=== PATIENT | female | born 1945 | race Caucasian/White ===

== ENCOUNTER 2024-02-05 09:21 | Observation (INO) ==
--- NOTE | 2024-02-05 09:34 | DR.NAUSEAF ---
HPI Time Seen Time Seen by Provider: 02/05/24 09:34 Primary Care Physician Primary Care Physician: Dr. Sesay Complaints Chief Complaint Doctors Comments: 78-year-old female presents for evaluation. Started feeling a bit off balance yesterday, then developed nausea with vomiting. Has had several episodes of vomiting throughout the night. Having generalized weakness. Denies fevers or chills. No URI symptoms, denies cough. Moved her bowels last p.m., was normal, no diarrhea. Denies abdominal pain. Still urinating, no burning with urination. Not around any known ill individuals. Chief Complaint:: Pt states that last night she had a sudden onset of nausea and vomiting that has continued through the night and into this morning. Pt c/o generalized weakness. Denies pain, diarrhea,chills or fever. COVID-19 Coronavirus risk:travel/contact w/high risk person: No Has patient experienced Coronavirus symptoms: No Reviewed Nurses Notes Reviewed: Yes Source History Provided: Patient Mode of Arrival Mode of Arrival: Wheelchair Timing Onset of Chief Complaint: 02/04/24 PMH PMH Past Medical History: Yes Past Medical History: Depression, Dyslipidemia, GERD and Hypothyroidism Past Medical History Comment: chronic back pain Past Surgical History: Yes Surgical History: Past Surgical History Comment: bilateral cataract surgery Family History History of Family Medical Conditions: Yes Family Medical History Comment: alcohol abuse Social History Does patient currently use any type of tobacco product: No Have you used tobacco products in the last 12 months: No Type of Tobacco Use: None Does any household member use tobacco: No Alcohol Use: None Do you use any recreational Drugs:: No Lives With: Family Lives Where: Home Travel Risk Coronavirus risk:travel/contact w/high risk person: No Has patient experienced Coronavirus symptoms: No Infectious screening In the last 2 months have you had wt loss of >10#?: NO Have you had fever, night sweats or hemotysis?: No Have you traveled outside the country in the last 6 months?: No Isolation: Standard ROS Review of Systems Constitutional: Weakness Eyes: No Symptoms Reported ENTM: No Symptoms Reported Respiratoy: No Symptoms Reported Cardiovascular: No Symptoms Reported Gastrointestinal/Abdominal: Nausea and Vomiting Genitourinary: No Symptoms Reported Neurological: Weakness Musculoskeletal: No Symptoms Reported Integumentary: No Symptoms Reported Hematologic/Lymphatic: No Symptoms Reported All Other Systems: Reviewed and Negative PE Vital Signs Vitals: Vital Signs Temperature 97.8 F Pulse Rate [Left Radial] 85 Pulse Rate 70 Pulse Rate 58 Pulse Rate 56 Pulse Rate 63 Pulse Rate 54 Pulse Rate 62 Pulse Rate 61 Pulse Rate 63 Pulse Rate 69 Pulse Rate 64 Pulse Rate 63 Pulse Rate 72 Pulse Rate 81 Respiratory Rate 20 Blood Pressure [Left Arm] 138/61 Blood Pressure 109/55 Blood Pressure 126/58 Blood Pressure 131/60 Blood Pressure 130/60 Blood Pressure 132/55 Blood Pressure 138/61 O2 Sat by Pulse Oximetry 97 O2 Sat by Pulse Oximetry 97 O2 Sat by Pulse Oximetry 97 O2 Sat by Pulse Oximetry 97 O2 Sat by Pulse Oximetry 97 O2 Sat by Pulse Oximetry 97 O2 Sat by Pulse Oximetry 97 O2 Sat by Pulse Oximetry 97 O2 Sat by Pulse Oximetry 98 O2 Sat by Pulse Oximetry 99 O2 Sat by Pulse Oximetry 96 O2 Sat by Pulse Oximetry 96 O2 Sat by Pulse Oximetry 96 O2 Sat by Pulse Oximetry 96 General General Appearance: Alert and In No Apparent Distress Eyes Eye exam: PERRL and EOMI ENT ENT Exam: Mucous Membranes Moist Neck Neck Exam: Normal Inspection Respiratory Respiratory Exam: Normal Lung Sounds Bilat; negative Accessory Muscle Use or Respiratory Distress Cardiovascular Cardiovascular Exam: Regular Rate, Normal Rhythm and Normal Heart Sounds Abdominal Exam Abdominal Exam: Normal Bowel Sounds and Soft; negative Tenderness, Guarding or Rebound Extremities Extremities Exam: Normal Inspection Neurologic Neurological Exam: Alert, Oriented X3 and CN II-XII Intact; negative Motor Sensory Deficit Skin Skin Exam: Warm and Dry COURSE Treatment Treatment: 78-year-old female with nausea vomiting since last p.m. Appears generally weak. No abdominal pain. Workup initiated. Patient given IV fluids, IV Zofran/Protonix. 1126 - feeling slightly better. No active vomiting here. Labs overall acceptable. U/A off a bit - + aissatou est, bacteria. Will treat with IV Rocephin here, additional zofran given, additional IV fluids. 1205 - still feeling nauseous, weak, worse with standing. No orthostatic changes. Discussed with her attending, Dr Sesay, will admit for observation. ROR Labs Reviewed Laboratory Results Reviewed?: Yes 02/05/24 09:35 02/05/24 09:35 Laboratory: WBC 6.2 X10^3/uL (3.6-10.0) 02/05/24 09:35 RBC 3.45 X10^6/uL (3.5-5.4) L 02/05/24 09:35 Hgb 10.3 g/dL (12.0-16.0) L 02/05/24 09:35 Hct 30.8 % (36.0-47.0) L 02/05/24 09:35 MCV 89.3 fL (80.0-100.0) 02/05/24 09:35 MCH 29.8 pg (27.0-34.0) 02/05/24 09:35 MCHC 33.4 g/dL (33.0-35.0) 02/05/24 09:35 RDW 13.6 % (11.6-16.5) 02/05/24 09:35 Plt Count 243 X10^3/uL (150.0-450.0) 02/05/24 09:35 MPV 8.9 fL (7.4-11.0) 02/05/24 09:35 Neut % (Auto) 81.7 % (42.0-75.0) H 02/05/24 09:35 Lymph % (Auto) 14.1 % (21.0-51.0) L 02/05/24 09:35 [place] % (Auto) 3.5 % (0.0-13.0) 02/05/24 09:35 Eos % (Auto) 0.1 % (0.9-2.9) L 02/05/24 09:35 Baso % (Auto) 0.6 % (0.2-1.0) 02/05/24 09:35 Neut # (Auto) 5.1 x10^3/uL (2.2-4.8) H 02/05/24 09:35 Lymph # (Auto) 0.9 X10^3/uL (1.3-2.9) L 02/05/24 09:35 [place] # (Auto) 0.2 x10^3/uL (0.3-0.8) L 02/05/24 09:35 Eos # (Auto) 0.0 x10^3/uL (0.0-0.2) 02/05/24 09:35 Baso # (Auto) 0.0 X10^3/uL (0.0-0.1) 02/05/24 09:35 Absolute Nucleated RBC 0.1 /100WBC 02/05/24 09:35 Sodium 139 mmol/L (136-145) 02/05/24 09:35 Corrected Sodium 140 mmol/L (136-145) 02/05/24 09:35 Potassium 3.9 mmol/L (3.5-5.1) 02/05/24 09:35 Chloride 103 mmol/L (98-107) 02/05/24 09:35 Carbon Dioxide 25.7 mmol/L (21-32) 02/05/24 09:35 BUN 13 mg/dL (7-18) 02/05/24 09:35 Creatinine 0.90 mg/dL (0.55-1.02) 02/05/24 09:35 Est GFR (MDRD) Af Amer > 60 (>60) 02/05/24 09:35 Est GFR (MDRD) Non-Af > 60 (>60) 02/05/24 09:35 Glucose 128 mg/dL (65-99) H 02/05/24 09:35 Calcium 8.5 mg/dL (8.5-10.1) 02/05/24 09:35 Corrected Calcium 9.2 mg/dL (8.5-10.1) 02/05/24 09:35 Total Bilirubin 0.40 mg/dL (0.2-1.0) 02/05/24 09:35 AST 16 Units/L (15-37) 02/05/24 09:35 ALT 12 Units/L (12-78) 02/05/24 09:35 Alkaline Phosphatase 107 Units/L (46-116) 02/05/24 09:35 Troponin I High Sens < 4.0 ng/L (4.0-60.0) L 02/05/24 09:35 Total Protein 7.0 g/dL (6.4-8.2) 02/05/24 09:35 Albumin 3.1 g/dL (3.4-5.0) L 02/05/24 09:35 Globulin 3.9 g/dL (2.5-4.5) 02/05/24 09:35 Albumin/Globulin Ratio 0.8 Ratio (1.1-2.1) L 02/05/24 09:35 Lipase 25 Units/L (16-77) 02/05/24 09:35 Specimen Type Clean catch urine 02/05/24 10:53 Urine Color Yellow (YELLOW) 02/05/24 10:53 Urine Appearance Clear (CLEAR) 02/05/24 10:53 Urine pH 7.0 (5.0 - 8.0) 02/05/24 10:53 Ur Specific [place] 1.015 (1.000-1.030) 02/05/24 10:53 Urine Protein Negative (NEGATIVE) 02/05/24 10:53 Urine Glucose (UA) Negative (NEGATIVE) 02/05/24 10:53 Urine Ketones Negative (NEGATIVE) 02/05/24 10:53 Urine Blood 1+ (NEGATIVE) 02/05/24 10:53 Urine Nitrite Negative (NEGATIVE) 02/05/24 10:53 Urine Bilirubin Negative (NEGATIVE) 02/05/24 10:53 Urine Urobilinogen Normal (NORMAL) 02/05/24 10:53 Ur Leukocyte Esterase 1+ (NEGATIVE) 02/05/24 10:53 Urine RBC 3-5 /HPF (0-3) A 02/05/24 10:53 Urine WBC 5-10 /HPF (0-5) A 02/05/24 10:53 Ur Squamous Epith Cells Few /HPF (NEGATIVE) 02/05/24 10:53 Urine Bacteria 2+ /HPF (NEGATIVE) 02/05/24 10:53 Ur Culture Indicated? Yes/culture set up 02/05/24 10:53 Labs overall acceptable. Urine consistent with UTI. Opioid Opioid Risk Tool Age (Jignesh box if 16-45): No History of Preadolescent Sexual Abuse: No Total: 0 Total Score Risk Category: Low Risk Copyright: Dante STARR predicting aberrant behaviors Discharge Plan Diagnosis Discharge Problem: Vomiting, Acute UTI Discharge Plan Patient Disposition: 09 ADMITTED INPATIENT Condition: Stable Orders to Discharge Patient Discharge Orders: Transfer (Routine); Ordered 02/05/24 Ordered By: Brown Colbert
[2024-02-05] MEDS: ZOFRAN INJ 4 MG VIAL IVP ONE ×2 (09:43→11:40)
[2024-02-05] MEDS: PROTONIX INJ 40 MG VIAL IVP ONE (09:43)
[2024-02-05] MEDS: NS 500 ML IV 500 ML IV ONE ×2 (09:43→14:09)
[2024-02-05 09:55] LABS: BASOPHILS % (AUTO) 0.6 % (0.2-1.0); EOSINOPHILS % (AUTO) 0.1 % (0.9-2.9); HEMATOCRIT 30.8 % (36.0-47.0); HEMOGLOBIN 10.3 g/dL (12.0-16.0); LYMPHOCYTES # (AUTO) 0.9 X10^3/uL (1.3-2.9); LYMPHOCYTES % (AUTO) 14.1 % (21.0-51.0); MEAN CORPUSCULAR HEMOGLOBIN 29.8 pg (27.0-34.0); MEAN CORPUSCULAR HGB CONC 33.4 g/dL (33.0-35.0); MEAN CORPUSCULAR VOLUME 89.3 fL (80.0-100.0); MEAN PLATELET VOLUME 8.9 fL (7.4-11.0); MONOCYTES # (AUTO) 0.2 x10^3/uL (0.3-0.8); MONOCYTES % (AUTO) 3.5 % (0.0-13.0); NEUTROPHILS # (AUTO) 5.1 x10^3/uL (2.2-4.8); NEUTROPHILS % (AUTO) 81.7 % (42.0-75.0); PLATELET COUNT 243 X10^3/uL (150.0-450.0); RED BLOOD COUNT 3.45 X10^6/uL (3.5-5.4); RED CELL DISTRIBUTION WIDTH 13.6 % (11.6-16.5); WHITE BLOOD COUNT 6.2 X10^3/uL (3.6-10.0)
[2024-02-05 10:10] LABS: ALANINE AMINOTRANSFERASE 12 Units/L (12-78); ALBUMIN 3.1 g/dL (3.4-5.0); ALKALINE PHOSPHATASE 107 Units/L (46-116); ASPARTATE AMINO TRANSFERASE 16 Units/L (15-37); BLOOD UREA NITROGEN 13 mg/dL (7-18); CALCIUM 8.5 mg/dL (8.5-10.1); CARBON DIOXIDE 25.7 mmol/L (21-32); CHLORIDE 103 mmol/L (98-107); COR CA(FOR HYPOALB) 9.2 mg/dL (8.5-10.1); COR NA(FOR HYPERGLY) 140 mmol/L (136-145); GLUCOSE 128 mg/dL (65-99); LIPASE 25 Units/L (16-77); POTASSIUM 3.9 mmol/L (3.5-5.1); SODIUM 139 mmol/L (136-145); eGFR NON BLACK RACES > 60 (>60)
[2024-02-05] MEDS: NS 250 ML IV 250 ML IV ONE ×2 (10:52→14:10)
[2024-02-05 11:15] LABS: BILIRUBIN,URINE NEGATIVE (NEGATIVE); BLOOD/HEMOGLOBIN,URINE 1+ (NEGATIVE); GLUCOSE, URINE NEGATIVE (NEGATIVE); KETONES,URINE NEGATIVE (NEGATIVE); LEUKOCYTE ESTERASE ,URINE 1+ (NEGATIVE); NITRITES,URINE NEGATIVE (NEGATIVE); PROTEIN,URINE NEGATIVE (NEGATIVE); UROBILINOGEN,URINE NORMAL (NORMAL)
[2024-02-05 11:19] LABS: APPEARANCE,URINE CLEAR (CLEAR); COLOR,URINE YELLOW (YELLOW)
[2024-02-05 11:20] LABS: BACTERIA,URINE 2+ /HPF (NEGATIVE); SQUAMOUS EPITHELIAL CELL,UR FEW /HPF (NEGATIVE)
[2024-02-05] MEDS: ROCEPHIN VIAL 1 GRAM IVP ONE (11:40)
[2024-02-05] MEDS: CARAFATE PO ONE (12:07)
[2024-02-05] MEDS ORDERED: CONSULT PHARMACY - POTASSIUM & MAGNESIUM XX SCH (13:49)
[2024-02-05] MEDS: ROCEPHIN VIAL 1 GRAM 1 G in NS 100 ML IV 100 ML IV SCH (14:08)
[2024-02-05] MEDS: ZOFRAN INJ 4 MG VIAL ONE ×2 (14:09→14:11)
[2024-02-05] MEDS: PROTONIX INJ 40 MG VIAL ONE (14:09)
[2024-02-05] MEDS: ROCEPHIN VIAL 1 GRAM ONE (14:10)
[2024-02-05] MEDS: CARAFATE ONE (14:11)
[2024-02-05] MEDS: LR 1,000 ML IV 1,000 ML IV SCH (14:38)
[2024-02-05] MEDS: ZOFRAN INJ 4 MG VIAL IVP PRN (14:48)
[2024-02-05] MEDS: ZOCOR TAB 40 MG PO SCH (20:17)
[2024-02-06 05:34] LABS: BASOPHILS % (AUTO) 0.3 % (0.2-1.0); EOSINOPHILS % (AUTO) 0.5 % (0.9-2.9); HEMOGLOBIN 9.1 g/dL (12.0-16.0); LYMPHOCYTES # (AUTO) 1.1 X10^3/uL (1.3-2.9); LYMPHOCYTES % (AUTO) 15.3 % (21.0-51.0); MEAN CORPUSCULAR HEMOGLOBIN 30.2 pg (27.0-34.0); MEAN CORPUSCULAR HGB CONC 33.6 g/dL (33.0-35.0); MEAN CORPUSCULAR VOLUME 89.7 fL (80.0-100.0); MEAN PLATELET VOLUME 9.1 fL (7.4-11.0); MONOCYTES # (AUTO) 0.5 x10^3/uL (0.3-0.8); MONOCYTES % (AUTO) 7.6 % (0.0-13.0); NEUTROPHILS # (AUTO) 5.3 x10^3/uL (2.2-4.8); NEUTROPHILS % (AUTO) 76.3 % (42.0-75.0); PLATELET COUNT 198 X10^3/uL (150.0-450.0); RED BLOOD COUNT 3.01 X10^6/uL (3.5-5.4); RED CELL DISTRIBUTION WIDTH 13.6 % (11.6-16.5)
[2024-02-06 05:45] LABS: ALANINE AMINOTRANSFERASE 8 Units/L (12-78); ALBUMIN 2.3 g/dL (3.4-5.0); ALKALINE PHOSPHATASE 82 Units/L (46-116); ASPARTATE AMINO TRANSFERASE 13 Units/L (15-37); BLOOD UREA NITROGEN 15 mg/dL (7-18); CALCIUM 7.9 mg/dL (8.5-10.1); CARBON DIOXIDE 25.5 mmol/L (21-32); CHLORIDE 106 mmol/L (98-107); COR CA(FOR HYPOALB) 9.3 mg/dL (8.5-10.1); CREATININE 0.92 mg/dL (0.55-1.02); GLUCOSE 87 mg/dL (65-99); POTASSIUM 3.6 mmol/L (3.5-5.1); SODIUM 140 mmol/L (136-145); TOTAL PROTEIN 5.6 g/dL (6.4-8.2); eGFR NON BLACK RACES > 60 (>60)
[2024-02-06 05:58] LABS: PLATELET MORPHOLOGY COMMENT NORMAL (NORMAL)
[2024-02-06] MEDS ORDERED: CONSULT PHARMACY - POTASSIUM & MAGNESIUM XX SCH (07:00)
[2024-02-06] MEDS: ESTRACE PO SCH (09:24)
[2024-02-06] MEDS: K-DUR TAB 20 MEQ PO SCH (09:25)
[2024-02-06] MEDS: PROTONIX TAB 40 MG PO SCH (09:25)
[2024-02-06] MEDS: SYNTHROID 25 mcg TAB PO SCH (09:25)
[2024-02-06] MEDS: FLONASE NASAL SPRAY ENOSTRIL SCH (09:25)
[2024-02-06] MEDS: PROVERA PO SCH (09:25)
[2024-02-06] MEDS: LEXAPRO PO SCH (09:25)
[2024-02-06] MEDS: LR 1,000 ML IV 1,000 ML IV SCH (09:26)
[2024-02-06] MEDS: LEXAPRO ONE (09:26)
[2024-02-06] MEDS ORDERED: ANTIVERT TAB 25 MG ONE (13:40)
[2024-02-06] MEDS: ANTIVERT TAB 25 MG PO PRN (13:48)
--- NOTE | 2024-02-06 17:18 | DR.H&P ---
H&P History & Physical for Day of: H&P Date: 02/05/24 Chief Complaint Chief Complaint: Nausea and vomiting Allergies Allergies Allergy/AdvReac Type Severity Reaction Status Date / Time No Known Allergies Allergy Verified 02/05/24 09:32 History of Present Illness History of Present Illness: This is a pleasant 78-year-old white female well- known to me. She developed an acute onset of nausea and vomiting the day before. She could not keep anything down and went to the [facility] emergency department to be seen by a physician. In the emergency department, she underwent a workup, which revealed that she looked very ill, and every time she stood up, she would become sicker. She was very unsteady on her feet, and because of that, we elected to go ahead and admit her overnight for IV hydration. Her labs do indicate that she is somewhat dehydrated and does have an elevated neutrophil count indicative of a bacterial infection. We also found that she has a urinary tract infection and we have started her on IV Rocephin. Past Medical History Past Medical History: Depression, Dyslipidemia, GERD and Hypothyroidism Past Surgical History Surgical History: Family History Family Medical History: Hypertension Social History Does patient currently use any type of tobacco product: No Have you used tobacco products in the last 12 months: No Type of Tobacco Use: None Does any household member use tobacco: No Alcohol Use: None Drug Use: None Medications Home Medications: Home Medications Medication Instructions Recorded Confirmed Type escitalopram oxalate 20 mg tablet 20 mg PO QDAY 05/09/23 02/05/24 History estradiol 0.5 mg tablet 0.5 mg PO QDAY 05/09/23 02/05/24 History levothyroxine 25 mcg tablet 25 mcg PO QDAY 05/09/23 02/05/24 History medroxyprogesterone 5 mg tablet 5 mg PO QDAY 05/09/23 02/05/24 History pantoprazole 40 mg tablet,delayed 40 mg PO QDAY 05/09/23 02/05/24 History release simvastatin 40 mg tablet 40 mg PO QPM 05/09/23 02/05/24 History doxycycline hyclate 100 mg capsule 100 mg PO BID 02/05/24 02/05/24 History Labs 02/06/24 05:12 02/06/24 05:12 Labs: 02/05/24 10:53 Urine,Clean Catch Urine Culture - Preliminary Laboratory WBC 7.0 X10^3/uL (3.6-10.0) 02/06/24 05:12 RBC 3.01 X10^6/uL (3.5-5.4) L 02/06/24 05:12 Hgb 9.1 g/dL (12.0-16.0) L 02/06/24 05:12 Hct 27.0 % (36.0-47.0) L 02/06/24 05:12 MCV 89.7 fL (80.0-100.0) 02/06/24 05:12 MCH 30.2 pg (27.0-34.0) 02/06/24 05:12 MCHC 33.6 g/dL (33.0-35.0) 02/06/24 05:12 RDW 13.6 % (11.6-16.5) 02/06/24 05:12 Plt Count 198 X10^3/uL (150.0-450.0) 02/06/24 05:12 Plt Count Comment Adequate (ADEQUATE) 02/06/24 05:12 MPV 9.1 fL (7.4-11.0) 02/06/24 05:12 Neut % (Auto) 76.3 % (42.0-75.0) H 02/06/24 05:12 Lymph % (Auto) 15.3 % (21.0-51.0) L 02/06/24 05:12 [place] % (Auto) 7.6 % (0.0-13.0) 02/06/24 05:12 Eos % (Auto) 0.5 % (0.9-2.9) L 02/06/24 05:12 Baso % (Auto) 0.3 % (0.2-1.0) 02/06/24 05:12 Neut # (Auto) 5.3 x10^3/uL (2.2-4.8) H 02/06/24 05:12 Lymph # (Auto) 1.1 X10^3/uL (1.3-2.9) L 02/06/24 05:12 [place] # (Auto) 0.5 x10^3/uL (0.3-0.8) 02/06/24 05:12 Eos # (Auto) 0.0 x10^3/uL (0.0-0.2) 02/06/24 05:12 Baso # (Auto) 0.0 X10^3/uL (0.0-0.1) 02/06/24 05:12 Absolute Nucleated RBC 0.0 /100WBC 02/06/24 05:12 Total Counted 100 02/06/24 05:12 Neutrophils % (Manual) 82 % (39-76) H 02/06/24 05:12 Lymphocytes % (Manual) 16 % (13-43) 02/06/24 05:12 Monocytes % (Manual) 2 % (4-9) L 02/06/24 05:12 Plt Morphology Comment Normal (NORMAL) 02/06/24 05:12 RBC Morphology Normal (NORMAL) 02/06/24 05:12 Sodium 140 mmol/L (136-145) 02/06/24 05:12 Corrected Sodium TNP 02/06/24 05:12 Potassium 3.6 mmol/L (3.5-5.1) 02/06/24 05:12 Chloride 106 mmol/L (98-107) 02/06/24 05:12 Carbon Dioxide 25.5 mmol/L (21-32) 02/06/24 05:12 BUN 15 mg/dL (7-18) 02/06/24 05:12 Creatinine 0.92 mg/dL (0.55-1.02) 02/06/24 05:12 Est GFR (MDRD) Af Amer > 60 (>60) 02/06/24 05:12 Est GFR (MDRD) Non-Af > 60 (>60) 02/06/24 05:12 Glucose 87 mg/dL (65-99) 02/06/24 05:12 Calcium 7.9 mg/dL (8.5-10.1) L 02/06/24 05:12 Corrected Calcium 9.3 mg/dL (8.5-10.1) 02/06/24 05:12 Magnesium 2.0 mg/dL (2.0-2.9) 02/06/24 05:12 Total Bilirubin 0.30 mg/dL (0.2-1.0) 02/06/24 05:12 AST 13 Units/L (15-37) L 02/06/24 05:12 ALT 8 Units/L (12-78) L 02/06/24 05:12 Alkaline Phosphatase 82 Units/L (46-116) 02/06/24 05:12 Troponin I High Sens < 4.0 ng/L (4.0-60.0) L 02/05/24 09:35 Total Protein 5.6 g/dL (6.4-8.2) L 02/06/24 05:12 Albumin 2.3 g/dL (3.4-5.0) L 02/06/24 05:12 Globulin 3.3 g/dL (2.5-4.5) 02/06/24 05:12 Albumin/Globulin Ratio 0.7 Ratio (1.1-2.1) L 02/06/24 05:12 Lipase 25 Units/L (16-77) 02/05/24 09:35 Specimen Type Clean catch urine 02/05/24 10:53 Urine Color Yellow (YELLOW) 02/05/24 10:53 Urine Appearance Clear (CLEAR) 02/05/24 10:53 Urine pH 7.0 (5.0 - 8.0) 02/05/24 10:53 Ur Specific [place] 1.015 (1.000-1.030) 02/05/24 10:53 Urine Protein Negative (NEGATIVE) 02/05/24 10:53 Urine Glucose (UA) Negative (NEGATIVE) 02/05/24 10:53 Urine Ketones Negative (NEGATIVE) 02/05/24 10:53 Urine Blood 1+ (NEGATIVE) 02/05/24 10:53 Urine Nitrite Negative (NEGATIVE) 02/05/24 10:53 Urine Bilirubin Negative (NEGATIVE) 02/05/24 10:53 Urine Urobilinogen Normal (NORMAL) 02/05/24 10:53 Ur Leukocyte Esterase 1+ (NEGATIVE) 02/05/24 10:53 Urine RBC 3-5 /HPF (0-3) A 02/05/24 10:53 Urine WBC 5-10 /HPF (0-5) A 02/05/24 10:53 Ur Squamous Epith Cells Few /HPF (NEGATIVE) 02/05/24 10:53 Urine Bacteria 2+ /HPF (NEGATIVE) 02/05/24 10:53 Ur Culture Indicated? Yes/culture set up 02/05/24 10:53 Review of Systems Constitutional: Sweats, Weakness and Malaise Eyes: No Symptoms Reported ENT: No Symptoms Reported Respiratory: No Symptoms Reported Cardiovascular: No Symptoms Reported Gastrointestinal: Nausea and Vomiting; denies Abdominal Pain, Diarrhea, Melena or Hematochezia Genitourinary: No Symptoms Reported Musculoskeletal: No Symptoms Reported Skin: No Symptoms Reported Neurological: No Symptoms Reported Physical Exam Vital Signs: Vital Signs Temperature 98.3 F Pulse Rate [Left Radial] 74 Respiratory Rate 18 Blood Pressure [Left Arm] 113/56 O2 Sat by Pulse Oximetry 96 Oriented: Normal, Time, Person and Place Eyes: Normal Ear: Normal Throat: Normal Respiratory: Clear Throughout Cardiovascular: Normal Auscultation: Bowel Sounds: Normal Palpation: Normal Tenderness: Normal Skin: Normal Musculoskeletal: Normal Psychiatric: Normal Mood Description: Calm Affect: Anxious, Depressed, Flat and Quiet Speech Pattern: Clear and Appropriate Assessment/Plan (1) Vomiting: Status: Acute Plan: IV hydration and IV Zofran for nausea/vomiting. Repeat CBC and CMP in the a.m. (2) Acute UTI: Status: Acute Plan: IV Rocephin. (3) Chronic low back pain: Status: Acute Plan: Pain control if needed. (4) Hypothyroidism: Qualifiers: Hypothyroidism type: unspecified Qualified Code(s): E03.9 - Hypothyroidism, unspecified Status: Acute Plan: Resume levothyroxine 25 mcg daily. We will plan on doing a TSH while she is here in the hospital as well. Review H&P Reviewed: Yes Patient was examined?: Yes
--- NOTE | 2024-02-06 17:20 | PCM.PROG ---
Progress Note Progress Note for Day of Date of Exam: 02/06/24 Subjective Subjective: The patient reports she feels a little bit better this morning. When she stands up she still gets lightheaded and feels bad. She is not currently ready to go home yet so we will plan on giving her another day of IV fluid. I will increase her IV fluid from 75 cc an hour to 125 cc an hour of lactated Ringer's. Will continue her on IV Rocephin for her UTI. I will follow up on her urine culture and sensitivity report. Once it is back and available for review we will adjust antibiotic treatment accordingly if needed. I will put in for consultation physical therapy today so we can start to help strengthening the patient's lower extremities and to keep her from becoming bedbound. Past Medical Family Social History Allergies: Allergies No Known Allergies Allergy (Verified 02/05/24 09:32) Review of Systems ROS: No change since H&P Vital Signs and I&O's Vital Signs: Vital Signs Temperature 98.3 F Pulse Rate [Left Radial] 74 Respiratory Rate 18 Blood Pressure [Left Arm] 113/56 O2 Sat by Pulse Oximetry 96 Intake and Output: Intake & Output 02/04/24 02/05/24 02/06/24 02/07/24 11:59 11:59 11:59 11:59 Intake Total 1263 / 1263 Balance 1263 / 1263 Physical Exam Oriented: Normal, Time, Person and Place Eyes: Normal Ear: Normal Throat: Normal Cardiovascular: Normal Auscultation: Bowel Sounds: Normal Tenderness: Normal Skin: Normal Musculoskeletal: Normal Psychiatric: Normal Mood Description: Calm Affect: Anxious, Depressed, Flat and Quiet Speech Pattern: Clear and Appropriate Laboratory and Diagnostics 02/06/24 05:12 02/06/24 05:12 Labs: 02/05/24 10:53 Urine,Clean Catch Urine Culture - Preliminary Laboratory WBC 7.0 X10^3/uL (3.6-10.0) 02/06/24 05:12 RBC 3.01 X10^6/uL (3.5-5.4) L 02/06/24 05:12 Hgb 9.1 g/dL (12.0-16.0) L 02/06/24 05:12 Hct 27.0 % (36.0-47.0) L 02/06/24 05:12 MCV 89.7 fL (80.0-100.0) 02/06/24 05:12 MCH 30.2 pg (27.0-34.0) 02/06/24 05:12 MCHC 33.6 g/dL (33.0-35.0) 02/06/24 05:12 RDW 13.6 % (11.6-16.5) 02/06/24 05:12 Plt Count 198 X10^3/uL (150.0-450.0) 02/06/24 05:12 Plt Count Comment Adequate (ADEQUATE) 02/06/24 05:12 MPV 9.1 fL (7.4-11.0) 02/06/24 05:12 Neut % (Auto) 76.3 % (42.0-75.0) H 02/06/24 05:12 Lymph % (Auto) 15.3 % (21.0-51.0) L 02/06/24 05:12 [place] % (Auto) 7.6 % (0.0-13.0) 02/06/24 05:12 Eos % (Auto) 0.5 % (0.9-2.9) L 02/06/24 05:12 Baso % (Auto) 0.3 % (0.2-1.0) 02/06/24 05:12 Neut # (Auto) 5.3 x10^3/uL (2.2-4.8) H 02/06/24 05:12 Lymph # (Auto) 1.1 X10^3/uL (1.3-2.9) L 02/06/24 05:12 [place] # (Auto) 0.5 x10^3/uL (0.3-0.8) 02/06/24 05:12 Eos # (Auto) 0.0 x10^3/uL (0.0-0.2) 02/06/24 05:12 Baso # (Auto) 0.0 X10^3/uL (0.0-0.1) 02/06/24 05:12 Absolute Nucleated RBC 0.0 /100WBC 02/06/24 05:12 Total Counted 100 02/06/24 05:12 Neutrophils % (Manual) 82 % (39-76) H 02/06/24 05:12 Lymphocytes % (Manual) 16 % (13-43) 02/06/24 05:12 Monocytes % (Manual) 2 % (4-9) L 02/06/24 05:12 Plt Morphology Comment Normal (NORMAL) 02/06/24 05:12 RBC Morphology Normal (NORMAL) 02/06/24 05:12 Sodium 140 mmol/L (136-145) 02/06/24 05:12 Corrected Sodium TNP 02/06/24 05:12 Potassium 3.6 mmol/L (3.5-5.1) 02/06/24 05:12 Chloride 106 mmol/L (98-107) 02/06/24 05:12 Carbon Dioxide 25.5 mmol/L (21-32) 02/06/24 05:12 BUN 15 mg/dL (7-18) 02/06/24 05:12 Creatinine 0.92 mg/dL (0.55-1.02) 02/06/24 05:12 Est GFR (MDRD) Af Amer > 60 (>60) 02/06/24 05:12 Est GFR (MDRD) Non-Af > 60 (>60) 02/06/24 05:12 Glucose 87 mg/dL (65-99) 02/06/24 05:12 Calcium 7.9 mg/dL (8.5-10.1) L 02/06/24 05:12 Corrected Calcium 9.3 mg/dL (8.5-10.1) 02/06/24 05:12 Magnesium 2.0 mg/dL (2.0-2.9) 02/06/24 05:12 Total Bilirubin 0.30 mg/dL (0.2-1.0) 02/06/24 05:12 AST 13 Units/L (15-37) L 02/06/24 05:12 ALT 8 Units/L (12-78) L 02/06/24 05:12 Alkaline Phosphatase 82 Units/L (46-116) 02/06/24 05:12 Troponin I High Sens < 4.0 ng/L (4.0-60.0) L 02/05/24 09:35 Total Protein 5.6 g/dL (6.4-8.2) L 02/06/24 05:12 Albumin 2.3 g/dL (3.4-5.0) L 02/06/24 05:12 Globulin 3.3 g/dL (2.5-4.5) 02/06/24 05:12 Albumin/Globulin Ratio 0.7 Ratio (1.1-2.1) L 02/06/24 05:12 Lipase 25 Units/L (16-77) 02/05/24 09:35 Specimen Type Clean catch urine 02/05/24 10:53 Urine Color Yellow (YELLOW) 02/05/24 10:53 Urine Appearance Clear (CLEAR) 02/05/24 10:53 Urine pH 7.0 (5.0 - 8.0) 02/05/24 10:53 Ur Specific [place] 1.015 (1.000-1.030) 02/05/24 10:53 Urine Protein Negative (NEGATIVE) 02/05/24 10:53 Urine Glucose (UA) Negative (NEGATIVE) 02/05/24 10:53 Urine Ketones Negative (NEGATIVE) 02/05/24 10:53 Urine Blood 1+ (NEGATIVE) 02/05/24 10:53 Urine Nitrite Negative (NEGATIVE) 02/05/24 10:53 Urine Bilirubin Negative (NEGATIVE) 02/05/24 10:53 Urine Urobilinogen Normal (NORMAL) 02/05/24 10:53 Ur Leukocyte Esterase 1+ (NEGATIVE) 02/05/24 10:53 Urine RBC 3-5 /HPF (0-3) A 02/05/24 10:53 Urine WBC 5-10 /HPF (0-5) A 02/05/24 10:53 Ur Squamous Epith Cells Few /HPF (NEGATIVE) 02/05/24 10:53 Urine Bacteria 2+ /HPF (NEGATIVE) 02/05/24 10:53 Ur Culture Indicated? Yes/culture set up 02/05/24 10:53 Plan (1) Vomiting: Status: Acute Plan: IV hydration and IV Zofran for nausea/vomiting. Repeat CBC and CMP in the a.m. (2) Acute UTI: Status: Acute Plan: IV Rocephin. (3) Chronic low back pain: Status: Acute Plan: Pain control if needed. (4) Hypothyroidism: Status: Acute Qualifiers: Hypothyroidism type: unspecified Qualified Code(s): E03.9 - Hypothyroidism, unspecified Plan: Resume levothyroxine 25 mcg daily. We will plan on doing a TSH while she is here in the hospital as well.
[2024-02-06] MEDS: TYLENOL 325 MG TAB PO PRN (20:51)
[2024-02-07 06:10] LABS: BASOPHILS % (AUTO) 0.8 % (0.2-1.0); EOSINOPHILS # (AUTO) 0.1 x10^3/uL (0.0-0.2); EOSINOPHILS % (AUTO) 2.3 % (0.9-2.9); HEMATOCRIT 27.3 % (36.0-47.0); HEMOGLOBIN 9.2 g/dL (12.0-16.0); LYMPHOCYTES # (AUTO) 1.5 X10^3/uL (1.3-2.9); LYMPHOCYTES % (AUTO) 31.4 % (21.0-51.0); MEAN CORPUSCULAR HEMOGLOBIN 30.3 pg (27.0-34.0); MEAN CORPUSCULAR HGB CONC 33.8 g/dL (33.0-35.0); MEAN CORPUSCULAR VOLUME 89.5 fL (80.0-100.0); MEAN PLATELET VOLUME 9.4 fL (7.4-11.0); MONOCYTES # (AUTO) 0.5 x10^3/uL (0.3-0.8); NEUTROPHILS # (AUTO) 2.6 x10^3/uL (2.2-4.8); NEUTROPHILS % (AUTO) 55.5 % (42.0-75.0); PLATELET COUNT 170 X10^3/uL (150.0-450.0); RED BLOOD COUNT 3.05 X10^6/uL (3.5-5.4); RED CELL DISTRIBUTION WIDTH 13.5 % (11.6-16.5); WHITE BLOOD COUNT 4.6 X10^3/uL (3.6-10.0)
[2024-02-07 06:23] LABS: ALANINE AMINOTRANSFERASE 9 Units/L (12-78); ALBUMIN 2.3 g/dL (3.4-5.0); ALKALINE PHOSPHATASE 84 Units/L (46-116); ASPARTATE AMINO TRANSFERASE 15 Units/L (15-37); BLOOD UREA NITROGEN 12 mg/dL (7-18); CARBON DIOXIDE 27.5 mmol/L (21-32); CHLORIDE 107 mmol/L (98-107); COR CA(FOR HYPOALB) 9.4 mg/dL (8.5-10.1); GLUCOSE 83 mg/dL (65-99); POTASSIUM 3.8 mmol/L (3.5-5.1); SODIUM 140 mmol/L (136-145); TOTAL PROTEIN 5.5 g/dL (6.4-8.2); eGFR NON BLACK RACES > 60 (>60)
[2024-02-07] MEDS ORDERED: CONSULT PHARMACY - POTASSIUM & MAGNESIUM XX SCH (07:00)
[2024-02-07] MEDS ORDERED: LEXAPRO ONE (08:33)
[2024-02-07] MEDS: K-DUR TAB 20 MEQ PO SCH (09:19)
[2024-02-07] MEDS: MAG-OX TAB PO SCH (09:23)
[2024-02-08 05:39] LABS: BASOPHILS % (AUTO) 0.5 % (0.2-1.0); EOSINOPHILS # (AUTO) 0.2 x10^3/uL (0.0-0.2); EOSINOPHILS % (AUTO) 3.2 % (0.9-2.9); HEMATOCRIT 27.1 % (36.0-47.0); HEMOGLOBIN 9.1 g/dL (12.0-16.0); LYMPHOCYTES % (AUTO) 16.1 % (21.0-51.0); MEAN CORPUSCULAR HEMOGLOBIN 30.1 pg (27.0-34.0); MEAN CORPUSCULAR HGB CONC 33.7 g/dL (33.0-35.0); MEAN CORPUSCULAR VOLUME 89.3 fL (80.0-100.0); MEAN PLATELET VOLUME 9.6 fL (7.4-11.0); MONOCYTES # (AUTO) 0.6 x10^3/uL (0.3-0.8); NEUTROPHILS # (AUTO) 4.3 x10^3/uL (2.2-4.8); NEUTROPHILS % (AUTO) 70.2 % (42.0-75.0); PLATELET COUNT 183 X10^3/uL (150.0-450.0); RED BLOOD COUNT 3.04 X10^6/uL (3.5-5.4); RED CELL DISTRIBUTION WIDTH 13.4 % (11.6-16.5); WHITE BLOOD COUNT 6.2 X10^3/uL (3.6-10.0)
[2024-02-08 05:43] LABS: ALANINE AMINOTRANSFERASE 8 Units/L (12-78); ALBUMIN 2.3 g/dL (3.4-5.0); ALKALINE PHOSPHATASE 89 Units/L (46-116); ASPARTATE AMINO TRANSFERASE 16 Units/L (15-37); BLOOD UREA NITROGEN 9 mg/dL (7-18); CHLORIDE 107 mmol/L (98-107); COR CA(FOR HYPOALB) 9.4 mg/dL (8.5-10.1); CREATININE 0.88 mg/dL (0.55-1.02); GLUCOSE 98 mg/dL (65-99); MAGNESIUM 1.9 mg/dL (2.0-2.9); SODIUM 142 mmol/L (136-145); TOTAL PROTEIN 5.5 g/dL (6.4-8.2); eGFR NON BLACK RACES > 60 (>60)
[2024-02-08] MEDS ORDERED: CONSULT PHARMACY - POTASSIUM & MAGNESIUM XX SCH (07:00)
[2024-02-08 08:34] VITALS: BP 118/58; PULSE 71; RESP 17; TEMP 98.2; O2SAT 96
--- NOTE | 2024-02-08 08:44 | PCM.PROG ---
Progress Note Progress Note for Day of Date of Exam: 02/07/24 Subjective Subjective: The patient reports she feels a little bit better this morning. As long as she continues to improve by later this afternoon or in the morning we will plan on discharging her home. Her dehydration has resolved and she is starting to eat more now Past Medical Family Social History Allergies: Allergies No Known Allergies Allergy (Verified 02/05/24 09:32) Review of Systems ROS: No change since H&P Vital Signs and I&O's Vital Signs: Vital Signs Temperature 98.2 F Temperature 97.6 F Pulse Rate [Left Radial] 71 Pulse Rate [Left Radial] 60 Respiratory Rate 17 Respiratory Rate 20 Blood Pressure [Left Arm] 118/58 Blood Pressure [Left Arm] 126/62 O2 Sat by Pulse Oximetry 96 O2 Sat by Pulse Oximetry 100 Intake and Output: Intake & Output 02/05/24 02/06/24 02/07/24 02/08/24 11:59 11:59 11:59 11:59 Intake Total 1263 / 1263 2899 / 2899 3273 / 3273 Balance 1263 / 1263 2899 / 2899 3273 / 3273 Physical Exam Oriented: Normal, Time, Person and Place Eyes: Normal Ear: Normal Throat: Normal Cardiovascular: Normal Auscultation: Bowel Sounds: Normal Tenderness: Normal Skin: Normal Musculoskeletal: Normal Psychiatric: Normal Mood Description: Calm Affect: Anxious, Depressed, Flat and Quiet Speech Pattern: Clear and Appropriate Laboratory and Diagnostics 02/08/24 04:19 02/08/24 04:19 Labs: 02/05/24 10:53 Urine,Clean Catch Urine Culture - Final Escherichia Coli Proteus Mirabilis Laboratory WBC 6.2 X10^3/uL (3.6-10.0) 02/08/24 04:19 RBC 3.04 X10^6/uL (3.5-5.4) L 02/08/24 04:19 Hgb 9.1 g/dL (12.0-16.0) L 02/08/24 04:19 Hct 27.1 % (36.0-47.0) L 02/08/24 04:19 MCV 89.3 fL (80.0-100.0) 02/08/24 04:19 MCH 30.1 pg (27.0-34.0) 02/08/24 04:19 MCHC 33.7 g/dL (33.0-35.0) 02/08/24 04:19 RDW 13.4 % (11.6-16.5) 02/08/24 04:19 Plt Count 183 X10^3/uL (150.0-450.0) 02/08/24 04:19 Plt Count Comment Adequate (ADEQUATE) 02/06/24 05:12 MPV 9.6 fL (7.4-11.0) 02/08/24 04:19 Neut % (Auto) 70.2 % (42.0-75.0) 02/08/24 04:19 Lymph % (Auto) 16.1 % (21.0-51.0) L 02/08/24 04:19 [place] % (Auto) 10.0 % (0.0-13.0) 02/08/24 04:19 Eos % (Auto) 3.2 % (0.9-2.9) H 02/08/24 04:19 Baso % (Auto) 0.5 % (0.2-1.0) 02/08/24 04:19 Neut # (Auto) 4.3 x10^3/uL (2.2-4.8) 02/08/24 04:19 Lymph # (Auto) 1.0 X10^3/uL (1.3-2.9) L 02/08/24 04:19 [place] # (Auto) 0.6 x10^3/uL (0.3-0.8) 02/08/24 04:19 Eos # (Auto) 0.2 x10^3/uL (0.0-0.2) 02/08/24 04:19 Baso # (Auto) 0.0 X10^3/uL (0.0-0.1) 02/08/24 04:19 Absolute Nucleated RBC 0.0 /100WBC 02/08/24 04:19 Total Counted 100 02/06/24 05:12 Neutrophils % (Manual) 82 % (39-76) H 02/06/24 05:12 Lymphocytes % (Manual) 16 % (13-43) 02/06/24 05:12 Monocytes % (Manual) 2 % (4-9) L 02/06/24 05:12 Plt Morphology Comment Normal (NORMAL) 02/06/24 05:12 RBC Morphology Normal (NORMAL) 02/06/24 05:12 Sodium 142 mmol/L (136-145) 02/08/24 04:19 Corrected Sodium TNP 02/08/24 04:19 Potassium 4.0 mmol/L (3.5-5.1) 02/08/24 04:19 Chloride 107 mmol/L (98-107) 02/08/24 04:19 Carbon Dioxide 30.0 mmol/L (21-32) 02/08/24 04:19 BUN 9 mg/dL (7-18) 02/08/24 04:19 Creatinine 0.88 mg/dL (0.55-1.02) 02/08/24 04:19 Est GFR (MDRD) Af Amer > 60 (>60) 02/08/24 04:19 Est GFR (MDRD) Non-Af > 60 (>60) 02/08/24 04:19 Glucose 98 mg/dL (65-99) 02/08/24 04:19 Calcium 8.0 mg/dL (8.5-10.1) L 02/08/24 04:19 Corrected Calcium 9.4 mg/dL (8.5-10.1) 02/08/24 04:19 Magnesium 1.9 mg/dL (2.0-2.9) L 02/08/24 04:19 Total Bilirubin 0.20 mg/dL (0.2-1.0) 02/08/24 04:19 AST 16 Units/L (15-37) 02/08/24 04:19 ALT 8 Units/L (12-78) L 02/08/24 04:19 Alkaline Phosphatase 89 Units/L (46-116) 02/08/24 04:19 Troponin I High Sens < 4.0 ng/L (4.0-60.0) L 02/05/24 09:35 Total Protein 5.5 g/dL (6.4-8.2) L 02/08/24 04:19 Albumin 2.3 g/dL (3.4-5.0) L 02/08/24 04:19 Globulin 3.2 g/dL (2.5-4.5) 02/08/24 04:19 Albumin/Globulin Ratio 0.7 Ratio (1.1-2.1) L 02/08/24 04:19 Lipase 25 Units/L (16-77) 02/05/24 09:35 Specimen Type Clean catch urine 02/05/24 10:53 Urine Color Yellow (YELLOW) 02/05/24 10:53 Urine Appearance Clear (CLEAR) 02/05/24 10:53 Urine pH 7.0 (5.0 - 8.0) 02/05/24 10:53 Ur Specific [place] 1.015 (1.000-1.030) 02/05/24 10:53 Urine Protein Negative (NEGATIVE) 02/05/24 10:53 Urine Glucose (UA) Negative (NEGATIVE) 02/05/24 10:53 Urine Ketones Negative (NEGATIVE) 02/05/24 10:53 Urine Blood 1+ (NEGATIVE) 02/05/24 10:53 Urine Nitrite Negative (NEGATIVE) 02/05/24 10:53 Urine Bilirubin Negative (NEGATIVE) 02/05/24 10:53 Urine Urobilinogen Normal (NORMAL) 02/05/24 10:53 Ur Leukocyte Esterase 1+ (NEGATIVE) 02/05/24 10:53 Urine RBC 3-5 /HPF (0-3) A 02/05/24 10:53 Urine WBC 5-10 /HPF (0-5) A 02/05/24 10:53 Ur Squamous Epith Cells Few /HPF (NEGATIVE) 02/05/24 10:53 Urine Bacteria 2+ /HPF (NEGATIVE) 02/05/24 10:53 Ur Culture Indicated? Yes/culture set up 02/05/24 10:53 Plan (1) Vomiting: Status: Acute Plan: IV hydration and IV Zofran for nausea/vomiting. Repeat CBC and CMP in the a.m. (2) Acute UTI: Status: Acute Plan: IV Rocephin. (3) Chronic low back pain: Status: Acute Plan: Pain control if needed. (4) Hypothyroidism: Status: Acute Qualifiers: Hypothyroidism type: unspecified Qualified Code(s): E03.9 - Hypothyroidism, unspecified Plan: Resume levothyroxine 25 mcg daily. We will plan on doing a TSH while she is here in the hospital as well.
[2024-02-08] MEDS ORDERED: LEXAPRO ONE (09:03)
[2024-02-08] MEDS: MAG-OX TAB PO SCH (09:49)
== END 2024-02-08 11:10 | disposition home or self-care (01) ==
LOC: ER 09:21 → MED/SURG 09:21 → U 09:21 → MED/SURG 13:40
PROVIDERS: ADMIT Family Medicine; ATTEND Family Medicine
DX: M54.59 Other low back pain; R42 Dizziness and giddiness; R11.10 Vomiting, unspecified; E78.5 Hyperlipidemia, unspecified; K21.9 Gastro-esophageal reflux disease without esophagitis; E03.8 Other specified hypothyroidism; E86.0 Dehydration; B96.4 Proteus (mirabilis) (morganii) as the cause of diseases classified elsewhere; N39.0 Urinary tract infection, site not specified; B96.29 Other Escherichia coli [E. coli] as the cause of diseases classified elsewhere; R53.1 Weakness; R26.81 Unsteadiness on feet